=== PATIENT | male | born 1970 | race Caucasian/White ===

== ENCOUNTER 2022-03-19 07:06 | Observation (INO) | payer OTHER ==
[~2022-03-19] VITALS: Ht 182.9 cm; Wt 130.0 kg
[2022-03-19] VITALS (20 sets, daily range): BP systolic 87–130; BP diastolic 47–85
[2022-03-19 07:45] LABS: BASO% 0.4 % (0-3); EOS% 1.3 % (0-8); HEMATOCRIT 45.1 % (39.0-50.0); IMMATURE GRANULOCYTES 0.4 % (0.0-5.0); LYMPH% 15.8 % (15-41); MEAN CELL VOLUME 100.2 fL CALC (80.0-100.0); MEAN CORPUSCULAR HGB 33.3 pG CALC (26.0-32.0); MEAN CORPUSCULAR HGB CONC 33.3 g/dL CAL (32.0-36.0); NEUT# 4.98 thou/uL (1.82-7.42); NEUT% 74.1 % (42-76); RED BLOOD COUNT 4.5 mill/uL (4.70-6.10); RED CELL DISTRI WIDTH 12.3 % (11.5-15.5)
[2022-03-19] MEDS ORDERED: ZIPRASIDONE HCL40 M1 PO (07:52)
[2022-03-19] MEDS ORDERED: PROTONIX40 M2 PO (07:53)
[2022-03-19] MEDS ORDERED: PROPRANOLOL HYD20 MG PO (07:55)
[2022-03-19] MEDS ORDERED: ZIPRASIDONE HCL80 MG PO (07:56)
[2022-03-19] MEDS ORDERED: PROZAC20 MG PO (07:57)
[2022-03-19 08:00] LABS: ALBUMIN 4.3 g/dL (3.2-5.0); ALKALINE PHOSPHATASE 86 u/l (38-126); ANION GAP 9 (6-22 (CALC)); BUN 14 mg/dL (9-20); BUN/CREATININE RATIO 17 (12-20 (CALC)); CARBON DIOXIDE 28 mmol/l (22-30); CHLORIDE 106 mmol/l (95-108); CREATININE 0.8 mg/dL (0.7-1.3); GFR FOR AFR.AMER. > 60 ML/MIN (>=60 (CALC)); GFR OTHER RACES > 60 ML/MIN (>=60 (CALC)); LIPASE 57 u/l (23-300); POTASSIUM 4.3 mmol/l (3.5-5.1); SGOT/AST 24 u/l (17-59); SODIUM 139 mmol/l (137-146); TOTAL PROTEIN 7.2 g/dL (6.3-8.2)
[2022-03-20 00:04] VITALS: BP 115/75
[2022-03-20 04:08] VITALS: BP 136/79
[2022-03-20 06:38] VITALS: BP 138/79
[2022-03-20 10:29] VITALS: BP 124/80
== END 2022-03-20 13:35 | disposition designated cancer center or children's hospital (05) | DRG 310 ==
LOC: ED 07:06 → ED-I 11:20 → ED 11:50 → MS2 11:51
PROVIDERS: Emergency Medicine; ADMIT Internal Medicine; ATTEND Internal Medicine
DX: R00.1 Bradycardia, unspecified (principal); T44.7X5A Adverse effect of beta-adrenoreceptor antagonists, initial encounter; F25.9 Schizoaffective disorder, unspecified; G43.909 Migraine, unspecified, not intractable, without status migrainosus; Z79.899 Other long term (current) drug therapy
CPT/HCPCS: G0378